=== PATIENT | male | born 1990 | race Two or more races ===

== ENCOUNTER 2019-11-19 17:15 | Inpatient (IN) | payer MEDICAID, OTHER ==
[~2019-11-19] VITALS: Ht 172.7 cm; Wt 97.6 kg
[2019-11-19] MEDS ORDERED: SODIUM CHLORIDE 0.9% 1,000 ML IVB ONE (17:48)
[2019-11-19 18:45] LABS: Basophils # (auto) 0 10 ^3/uL (0-0.2); Basophils % (auto) 0.4 % (0.0-2.0); Eosinophils # (auto) 0 10 ^3/uL (0-0.8); Hematocrit 45.9 % (41.0-53.0); Hemoglobin 15.5 g/dL (13.5-17.5); Lymphocytes # (auto) 0.9 10 ^3/uL (0.4-5.4); Lymphocytes % (auto) 15.6 % (10.0-50.0); Mean Corpuscular Hemoglobin 27.6 pg (28.0-32.0); Mean Corpuscular Hgb Conc. 33.7 g/dL (32.0-36.0); Monocytes # (auto) 0.5 10 ^3/uL (0-1.3); Monocytes % (auto) 9.1 % (0.0-12.0); Neutrophils # (auto) 4.1 10 ^3/uL (1.6-8.6); Neutrophils % (auto) 74.9 % (37.0-80.0); Platelet Count (auto) 140 10^3/uL (140-450); Red Blood Cells 5.61 10^6/uL (4.5-5.90); Red Cell Distribution Width 13.3 % (11.8-14.3); White Blood Cell 5.5 10^3/uL (4.4-10.8)
[2019-11-19 19:00] LABS: INR 1.07 (0.9-1.15); Partial Thromboplastin Time 34.4 sec (23.64-32.05)
[2019-11-19 19:06] LABS: Calcium 8.2 mg/dL (8.5-10.1); Magnesium 2.5 mg/dL (1.6-2.6)
[2019-11-19 19:15] LABS: Bilirubin, Total 0.6 mg/dL (0.2-1.0); Total Protein 8.1 g/dL (6.4-8.2)
[2019-11-19] MEDS ORDERED: ASCORBIC ACID 500 MG TAB PO ONE (20:00)
[2019-11-19] MEDS ORDERED: DOXYCYCLINE 100MG/250ML 250 ML IV ONE (20:00)
[2019-11-19] MEDS ORDERED: ZINC SULFATE 220mg CAP or TAB PO ONE (20:00)
[2019-11-19] MEDS ORDERED: ACETAMINOPHEN 325 MG TAB PO ONE (20:00)
[2019-11-19] MEDS ORDERED: DexAMETHasone 4 MG TAB PO ONE (20:00)
[2019-11-19] MEDS ORDERED: POTASSIUM CHL 20 Meq TABLET PO ONE (20:00)
[2019-11-19] MEDS ORDERED: SODIUM CHLORIDE 0.9% 1,000 ML IV SCH (20:53)
[2019-11-19] MEDS ORDERED: TEMAZEPAM 15 MG CAP PO PRN (21:00)
[2019-11-19] MEDS ORDERED: NITROGLYCERIN 0.4 MG SL TAB SL PRN (21:00)
[2019-11-19] MEDS ORDERED: MORPHINE SULF INJ 2 MG/ML SYRINGE 1ML IV PRN (21:00)
[2019-11-19] MEDS ORDERED: ONDANSETRON HCL 4 MG/2 ML VIAL IV PRN (21:00)
[2019-11-19] MEDS: DOXYCYCLINE 100MG/250ML 250 ML IV SCH (22:00)
[2019-11-19 22:57] LABS: Magnesium 2.4 mg/dL (1.6-2.6)
[2019-11-19 23:29] LABS: CRP High Sensitivity 1.57 mg/dL (< 0.3)
[2019-11-20] MEDS: FAMOTIDINE 20 MG TAB PO SCH ×3 (01:10→21:44)
[2019-11-20 08:13] LABS: Basophils # (auto) 0 10 ^3/uL (0-0.2); Basophils % (auto) 0.1 % (0.0-2.0); Eosinophils # (auto) 0 10 ^3/uL (0-0.8); Hematocrit 44.8 % (41.0-53.0); Hemoglobin 14.9 g/dL (13.5-17.5); Lymphocytes # (auto) 0.8 10 ^3/uL (0.4-5.4); Lymphocytes % (auto) 12.7 % (10.0-50.0); Mean Corpuscular Hemoglobin 27.7 pg (28.0-32.0); Mean Corpuscular Hgb Conc. 33.2 g/dL (32.0-36.0); Mean Corpuscular Volume 83.3 fL (80.0-100.0); Monocytes # (auto) 0.3 10 ^3/uL (0-1.3); Monocytes % (auto) 5.2 % (0.0-12.0); Neutrophils # (auto) 5.4 10 ^3/uL (1.6-8.6); Nucleated Red Blood Cells % 0.1 %; Platelet Count (auto) 157 10^3/uL (140-450); Red Blood Cells 5.37 10^6/uL (4.5-5.90); Red Cell Distribution Width 13.3 % (11.8-14.3); White Blood Cell 6.6 10^3/uL (4.4-10.8)
[2019-11-20 08:28] LABS: Albumin 3.6 g/dL (3.4-5.0); Potassium 3.4 mmol/L (3.5-5.1)
[2019-11-20 08:35] LABS: BUN/Creatinine Ratio 7.5; Bilirubin, Total 0.6 mg/dL (0.2-1.0); Total Protein 7.8 g/dL (6.4-8.2)
[2019-11-20] MEDS: DOXYCYCLINE 100MG/250ML 250 ML IV SCH ×2 (09:44→21:43)
[2019-11-20] MEDS: ZINC SULFATE 220mg CAP or TAB PO SCH (09:44)
[2019-11-20] MEDS: CHOLECALCIFEROL (VITD3) 2,000 UNIT CAP PO SCH (09:46)
[2019-11-20] MEDS ORDERED: ENOXAPARIN SOD 40 MG/0.4 ML SYRINGE SC SCH (10:00)
[2019-11-20] MEDS ORDERED: LORazepam 0.5 MG TAB PO PRN (10:00)
[2019-11-20] MEDS ORDERED: ASCORBIC ACID 1,000 MG TAB PO SCH (10:00)
[2019-11-20] MEDS: DexAMETHasone SOD PHOS 10MG/1ML VIAL INJ IV SCH (10:52)
[2019-11-20] MEDS ORDERED: cefTRIAXone 1GM/50ML D5W 50 ML IV ONE (11:00)
[2019-11-20] MEDS ORDERED: FUROSEMIDE 40 MG/4 ML VIAL IV ONE (11:00)
[2019-11-20] MEDS: ACETAMINOPHEN 325 MG TAB PO PRN (11:48)
[2019-11-20 12:52] LABS: Urine Bacteria NONE SEEN /hpf (None Seen); Urine Blood Negative /uL (Negative); Urine Budding Yeast OCCASIONAL /hpf (None Seen); Urine Mucus FEW (None Seen); Urine Specific Gravity 1.013 (1.001-1.035); Urine WBC 2 /hpf (0 - 3)
[2019-11-20] MEDS: ENOXAPARIN SOD 40 MG/0.4 ML SYRINGE SC SCH (21:44)
[2019-11-20 23:45] VITALS: BP 106/56
[2019-11-20] MEDS: ASCORBIC ACID 1,000 MG TAB PO SCH (23:59)
[2019-11-21] MEDS ORDERED: INFLUENZA QUAD 2019-2020 0.5ml SYRG IM ONE (01:15)
[2019-11-21] MEDS ORDERED: PNEUMOCOCCAL VACC POLYS 25 MCG/0.5 ML VIAL IM ONE (01:15)
[2019-11-21] MEDS: ACETAMINOPHEN 325 MG TAB PO PRN (03:59)
[2019-11-21 04:56] VITALS: BP 102/69
[2019-11-21 07:41] LABS: Basophils # (auto) 0 10 ^3/uL (0-0.2); Basophils % (auto) 0.1 % (0.0-2.0); Eosinophils # (auto) 0 10 ^3/uL (0-0.8); Hematocrit 42.2 % (41.0-53.0); Hemoglobin 14.1 g/dL (13.5-17.5); Mean Corpuscular Hemoglobin 27.6 pg (28.0-32.0); Mean Corpuscular Hgb Conc. 33.3 g/dL (32.0-36.0); Mean Corpuscular Volume 82.9 fL (80.0-100.0); Monocytes # (auto) 0.7 10 ^3/uL (0-1.3); Monocytes % (auto) 6.7 % (0.0-12.0); Neutrophils # (auto) 9.3 10 ^3/uL (1.6-8.6); Neutrophils % (auto) 84.2 % (37.0-80.0); Nucleated Red Blood Cells % 0.2 %; Platelet Count (auto) 180 10^3/uL (140-450); Red Blood Cells 5.09 10^6/uL (4.5-5.90); Red Cell Distribution Width 13.5 % (11.8-14.3); White Blood Cell 11.1 10^3/uL (4.4-10.8)
[2019-11-21 08:00] VITALS: BP 96/63
[2019-11-21 08:07] LABS: Albumin 3.2 g/dL (3.4-5.0); Calcium 8.5 mg/dL (8.5-10.1); Potassium 3.5 mmol/L (3.5-5.1)
[2019-11-21 08:11] LABS: BUN/Creatinine Ratio 15.5; Bilirubin, Total 0.5 mg/dL (0.2-1.0); Total Protein 7.3 g/dL (6.4-8.2)
[2019-11-21 08:21] LABS: CRP High Sensitivity 3.37 mg/dL (< 0.3)
[2019-11-21] MEDS ORDERED: cefTRIAXone 1GM/50ML D5W 50 ML IV SCH (09:00)
[2019-11-21] MEDS: THIAMINE 100mg/ml INJ (200mg/2ml VIAL) IV SCH (10:11)
[2019-11-21] MEDS: DexAMETHasone SOD PHOS 10MG/1ML VIAL INJ IV SCH (10:12)
[2019-11-21] MEDS: FUROSEMIDE 40 MG/4 ML VIAL IV SCH (10:15)
[2019-11-21] MEDS: DOXYCYCLINE 100MG/250ML 250 ML IV SCH (10:16)
[2019-11-21] MEDS: FAMOTIDINE 20 MG TAB PO SCH ×2 (10:17→22:38)
[2019-11-21] MEDS: ZINC SULFATE 220mg CAP or TAB PO SCH (10:17)
[2019-11-21] MEDS: CHOLECALCIFEROL (VITD3) 2,000 UNIT CAP PO SCH (10:18)
[2019-11-21] MEDS: ENOXAPARIN SOD 40 MG/0.4 ML SYRINGE SC SCH ×2 (10:18→22:39)
[2019-11-21] MEDS: ASCORBIC ACID 1,000 MG TAB PO SCH ×2 (10:18→22:00)
[2019-11-21 13:00] VITALS: BP 90/47
[2019-11-21] MEDS ORDERED: REMDESIVIR 200 MG in NS 210ml LOADING DOSE ADULT IV ONE (17:00)
[2019-11-21 17:09] VITALS: BP_SYST 105; BP_SYST 86; BP_DIAS 44; BP_DIAS 62
[2019-11-21] MEDS ORDERED: POTASSIUM CHL 20 Meq TABLET PO ONE (19:45)
[2019-11-21] MEDS ORDERED: DEXTROSE (50%) 50ML SYRG IV PRN (19:45)
[2019-11-21] MEDS: methylPREDNISolone SOD SUCC 40 MG/ML VL IV SCH (20:14)
[2019-11-21] MEDS: diphenhdrAMINE HCL 50 MG/1 ML VL IV SCH (20:14)
[2019-11-21] MEDS: ACETAMINOPHEN 650 mg PER 20 mL UD PO SCH (20:15)
[2019-11-21] MEDS: TOCILIZUMAB 400 MG in SODIUM CHL 0.9% 80 ML IV SCH (21:03)
[2019-11-21 22:00] VITALS: BP 134/73
[2019-11-21] MEDS: DOXYCYCLINE 100 MG TAB/CAP PO SCH (22:38)
[2019-11-21] MEDS: cefTRIAXone 1GM/50ML D5W 50 ML IV SCH (22:38)
[2019-11-21] MEDS: ACCU-CHEK COMFORT CURVE STRIP VI SCH (22:52)
[2019-11-21] MEDS: InsuLIN REG 1unit/0.01ml Soln (100units/ml) SC SCH (22:57)
[2019-11-22 05:00] VITALS: BP 110/60
[2019-11-22] MEDS: InsuLIN REG 1unit/0.01ml Soln (100units/ml) SC SCH ×4 (06:34→21:48)
[2019-11-22] MEDS: ACCU-CHEK COMFORT CURVE STRIP VI SCH ×4 (06:34→21:48)
[2019-11-22] MEDS: ACETAMINOPHEN 650 mg PER 20 mL UD PO SCH (08:00)
[2019-11-22] MEDS: methylPREDNISolone SOD SUCC 40 MG/ML VL IV SCH (08:00)
[2019-11-22] MEDS: diphenhdrAMINE HCL 50 MG/1 ML VL IV SCH (08:00)
[2019-11-22] MEDS: TOCILIZUMAB 400 MG in SODIUM CHL 0.9% 80 ML IV SCH (08:00)
[2019-11-22 09:00] VITALS: BP 117/66
[2019-11-22] MEDS: THIAMINE 100mg/ml INJ (200mg/2ml VIAL) IV SCH (10:00)
[2019-11-22] MEDS: ASCORBIC ACID 1,000 MG TAB PO SCH ×2 (10:00→21:18)
[2019-11-22] MEDS ORDERED: POTASSIUM CHL 20 Meq TABLET PO SCH (10:00)
[2019-11-22] MEDS: ZINC SULFATE 220mg CAP or TAB PO SCH (10:00)
[2019-11-22] MEDS: DexAMETHasone SOD PHOS 10MG/1ML VIAL INJ IV SCH (10:00)
[2019-11-22] MEDS: cefTRIAXone 1GM/50ML D5W 50 ML IV SCH ×2 (10:17→21:18)
[2019-11-22] MEDS: FUROSEMIDE 40 MG/4 ML VIAL IV SCH (10:19)
[2019-11-22] MEDS: CHOLECALCIFEROL (VITD3) 2,000 UNIT CAP PO SCH (10:21)
[2019-11-22] MEDS: DOXYCYCLINE 100 MG TAB/CAP PO SCH ×2 (10:21→21:18)
[2019-11-22] MEDS: FAMOTIDINE 20 MG TAB PO SCH ×2 (10:21→21:18)
[2019-11-22 13:00] VITALS: BP 139/64
[2019-11-22] MEDS ORDERED: LOPERAMIDE 2 mg/15ml ORAL soln PO ONE (13:00)
[2019-11-22] MEDS ORDERED: POTASSIUM EFFERVESENT TAB 25 MEQ PO ONE (16:30)
[2019-11-22] MEDS: REMDESIVIR 100mg in NS 230ml DAILYx4DAYS (NO VENT) IV SCH (16:45)
[2019-11-22 17:00] VITALS: BP 116/67
[2019-11-22 22:00] VITALS: BP 112/55
[2019-11-22] MEDS ORDERED: ENOXAPARIN SOD 60 MG/0.6 ML SYRINGE SC SCH (22:00)
[2019-11-23 05:00] VITALS: BP 126/73
[2019-11-23] MEDS: ACCU-CHEK COMFORT CURVE STRIP VI SCH ×4 (06:29→21:31)
[2019-11-23] MEDS: InsuLIN REG 1unit/0.01ml Soln (100units/ml) SC SCH ×4 (06:29→22:00)
[2019-11-23 07:40] LABS: Basophils # (auto) 0 10 ^3/uL (0-0.2); Eosinophils # (auto) 0 10 ^3/uL (0-0.8); Hematocrit 44.2 % (41.0-53.0); Hemoglobin 14.7 g/dL (13.5-17.5); Lymphocytes # (auto) 1.4 10 ^3/uL (0.4-5.4); Lymphocytes % (auto) 14.8 % (10.0-50.0); Mean Corpuscular Hemoglobin 27.8 pg (28.0-32.0); Mean Corpuscular Hgb Conc. 33.3 g/dL (32.0-36.0); Mean Corpuscular Volume 83.6 fL (80.0-100.0); Monocytes % (auto) 10.4 % (0.0-12.0); Neutrophils % (auto) 74.8 % (37.0-80.0); Platelet Count (auto) 284 10^3/uL (140-450); Red Blood Cells 5.29 10^6/uL (4.5-5.90); Red Cell Distribution Width 13.4 % (11.8-14.3); White Blood Cell 9.3 10^3/uL (4.4-10.8)
[2019-11-23 07:58] LABS: Potassium 3.5 mmol/L (3.5-5.1)
[2019-11-23 08:00] VITALS: BP 113/70
[2019-11-23 08:07] LABS: Albumin 3.1 g/dL (3.4-5.0); BUN/Creatinine Ratio 27.9; Bilirubin, Total 0.5 mg/dL (0.2-1.0); Calcium 8.5 mg/dL (8.5-10.1); Total Protein 7.6 g/dL (6.4-8.2)
[2019-11-23] MEDS ORDERED: MULTIPLE VITAMINS W/ MINERALS TAB PO ONE (08:45)
[2019-11-23] MEDS ORDERED: THIAMINE HCL 100 MG TAB PO ONE (09:00)
[2019-11-23] MEDS: cefTRIAXone 1GM/50ML D5W 50 ML IV SCH ×2 (09:44→21:31)
[2019-11-23] MEDS: POTASSIUM EFFERVESENT TAB 25 MEQ PO SCH (09:44)
[2019-11-23] MEDS: ZINC SULFATE 220mg CAP or TAB PO SCH (09:44)
[2019-11-23] MEDS: DOXYCYCLINE 100 MG TAB/CAP PO SCH ×2 (09:45→21:31)
[2019-11-23] MEDS: MULTIPLE VITAMINS W/ MINERALS TAB PO SCH (09:45)
[2019-11-23] MEDS: FAMOTIDINE 20 MG TAB PO SCH ×2 (09:45→21:31)
[2019-11-23] MEDS: ASCORBIC ACID 1,000 MG TAB PO SCH ×2 (09:46→21:31)
[2019-11-23] MEDS: CHOLECALCIFEROL (VITD3) 2,000 UNIT CAP PO SCH (09:46)
[2019-11-23] MEDS: ENOXAPARIN SOD 100 MG/1 ML SYRINGE SC SCH ×2 (09:48→21:31)
[2019-11-23] MEDS: DexAMETHasone SOD PHOS 10MG/1ML VIAL INJ IV SCH (09:50)
[2019-11-23] MEDS: FUROSEMIDE 40 MG/4 ML VIAL IV SCH (10:00)
[2019-11-23 12:00] VITALS: BP 112/64
[2019-11-23 17:00] VITALS: BP 108/58
[2019-11-23] MEDS: REMDESIVIR 100mg in NS 230ml DAILYx4DAYS (NO VENT) IV SCH (17:00)
[2019-11-23 22:00] VITALS: BP 99/56
[2019-11-24 05:57] VITALS: BP 121/68
[2019-11-24] MEDS: ACCU-CHEK COMFORT CURVE STRIP VI SCH ×4 (06:39→22:17)
[2019-11-24] MEDS: InsuLIN REG 1unit/0.01ml Soln (100units/ml) SC SCH ×4 (06:40→22:18)
[2019-11-24 07:35] LABS: Albumin 3.1 g/dL (3.4-5.0); Potassium 3.6 mmol/L (3.5-5.1)
[2019-11-24 07:39] LABS: BUN/Creatinine Ratio 29.3; Bilirubin, Total 0.6 mg/dL (0.2-1.0); Total Protein 7.1 g/dL (6.4-8.2)
[2019-11-24 08:00] VITALS: BP 108/60
[2019-11-24] MEDS: DexAMETHasone SOD PHOS 10MG/1ML VIAL INJ IV SCH (09:38)
[2019-11-24] MEDS: FUROSEMIDE 40 MG/4 ML VIAL IV SCH (09:41)
[2019-11-24] MEDS: cefTRIAXone 1GM/50ML D5W 50 ML IV SCH ×2 (09:41→22:16)
[2019-11-24] MEDS: THIAMINE HCL 100 MG TAB PO SCH (09:41)
[2019-11-24] MEDS: POTASSIUM EFFERVESENT TAB 25 MEQ PO SCH (09:42)
[2019-11-24] MEDS: ZINC SULFATE 220mg CAP or TAB PO SCH (09:42)
[2019-11-24] MEDS: ASCORBIC ACID 1,000 MG TAB PO SCH ×2 (09:44→22:16)
[2019-11-24] MEDS: ENOXAPARIN SOD 100 MG/1 ML SYRINGE SC SCH ×2 (09:44→22:17)
[2019-11-24] MEDS: CHOLECALCIFEROL (VITD3) 2,000 UNIT CAP PO SCH (09:44)
[2019-11-24] MEDS: DOXYCYCLINE 100 MG TAB/CAP PO SCH ×2 (09:44→22:16)
[2019-11-24] MEDS: MULTIPLE VITAMINS W/ MINERALS TAB PO SCH (09:45)
[2019-11-24] MEDS: FAMOTIDINE 20 MG TAB PO SCH ×2 (09:53→22:16)
[2019-11-24 12:00] VITALS: BP 100/54
[2019-11-24 17:00] VITALS: BP 105/60
[2019-11-24] MEDS: REMDESIVIR 100mg in NS 230ml DAILYx4DAYS (NO VENT) IV SCH (17:20)
[2019-11-24 22:27] VITALS: BP 107/54
[2019-11-25 04:47] VITALS: BP 89/48
[2019-11-25] MEDS: InsuLIN REG 1unit/0.01ml Soln (100units/ml) SC SCH ×4 (06:23→21:23)
[2019-11-25] MEDS: ACCU-CHEK COMFORT CURVE STRIP VI SCH ×4 (06:24→21:14)
[2019-11-25 09:00] VITALS: BP 97/60
[2019-11-25] MEDS: ASCORBIC ACID 1,000 MG TAB PO SCH ×3 (10:00→21:15)
[2019-11-25] MEDS: MULTIPLE VITAMINS W/ MINERALS TAB PO SCH ×2 (10:00→11:21)
[2019-11-25] MEDS: DexAMETHasone SOD PHOS 10MG/1ML VIAL INJ IV SCH (11:18)
[2019-11-25] MEDS: FUROSEMIDE 40 MG/4 ML VIAL IV SCH (11:19)
[2019-11-25] MEDS: cefTRIAXone 1GM/50ML D5W 50 ML IV SCH ×2 (11:19→21:13)
[2019-11-25] MEDS: THIAMINE HCL 100 MG TAB PO SCH (11:20)
[2019-11-25] MEDS: FAMOTIDINE 20 MG TAB PO SCH ×2 (11:21→21:14)
[2019-11-25] MEDS: ZINC SULFATE 220mg CAP or TAB PO SCH (11:21)
[2019-11-25] MEDS: DOXYCYCLINE 100 MG TAB/CAP PO SCH (11:21)
[2019-11-25] MEDS: POTASSIUM EFFERVESENT TAB 25 MEQ PO SCH (11:21)
[2019-11-25] MEDS: ENOXAPARIN SOD 100 MG/1 ML SYRINGE SC SCH ×2 (11:22→21:14)
[2019-11-25] MEDS: CHOLECALCIFEROL (VITD3) 2,000 UNIT CAP PO SCH (11:22)
[2019-11-25 11:55] LABS: Albumin 3.2 g/dL (3.4-5.0); Calcium 8.5 mg/dL (8.5-10.1); Potassium 3.8 mmol/L (3.5-5.1)
[2019-11-25 12:00] LABS: BUN/Creatinine Ratio 32.5; Bilirubin, Total 0.7 mg/dL (0.2-1.0); Total Protein 7.1 g/dL (6.4-8.2)
[2019-11-25 13:00] VITALS: BP 95/59
[2019-11-25 17:00] VITALS: BP 99/52
[2019-11-25] MEDS: REMDESIVIR 100mg in NS 230ml DAILYx4DAYS (NO VENT) IV SCH (17:35)
[2019-11-25 23:24] VITALS: BP 95/57
[2019-11-26 05:00] VITALS: BP 98/63
[2019-11-26] MEDS: ACCU-CHEK COMFORT CURVE STRIP VI SCH ×4 (05:58→21:07)
[2019-11-26] MEDS: InsuLIN REG 1unit/0.01ml Soln (100units/ml) SC SCH ×4 (05:58→21:08)
[2019-11-26 09:00] VITALS: BP 99/63
[2019-11-26] MEDS: ZINC SULFATE 220mg CAP or TAB PO SCH (10:00)
[2019-11-26] MEDS: CHOLECALCIFEROL (VITD3) 2,000 UNIT CAP PO SCH (10:00)
[2019-11-26] MEDS: THIAMINE HCL 100 MG TAB PO SCH (10:00)
[2019-11-26] MEDS: FUROSEMIDE 40 MG/4 ML VIAL IV SCH (10:00)
[2019-11-26] MEDS: MULTIPLE VITAMINS W/ MINERALS TAB PO SCH (10:00)
[2019-11-26] MEDS: ASCORBIC ACID 1,000 MG TAB PO SCH ×2 (10:00→21:14)
[2019-11-26] MEDS: FAMOTIDINE 20 MG TAB PO SCH ×2 (10:00→21:13)
[2019-11-26] MEDS: POTASSIUM EFFERVESENT TAB 25 MEQ PO SCH (10:00)
[2019-11-26] MEDS: DexAMETHasone SOD PHOS 10MG/1ML VIAL INJ IV SCH (10:35)
[2019-11-26] MEDS: ENOXAPARIN SOD 100 MG/1 ML SYRINGE SC SCH ×2 (10:36→21:12)
[2019-11-26] MEDS: cefTRIAXone 1GM/50ML D5W 50 ML IV SCH ×2 (10:36→21:13)
[2019-11-26 13:00] VITALS: BP 101/54
[2019-11-26 17:54] VITALS: BP 99/54
[2019-11-26 22:13] VITALS: BP 104/58
[2019-11-27 05:00] VITALS: BP 106/68
[2019-11-27] MEDS: ACCU-CHEK COMFORT CURVE STRIP VI SCH ×2 (05:59→11:29)
[2019-11-27] MEDS: InsuLIN REG 1unit/0.01ml Soln (100units/ml) SC SCH ×2 (05:59→11:29)
[2019-11-27 09:08] LABS: Basophils # (auto) 0 10 ^3/uL (0-0.2); Basophils % (auto) 0.2 % (0.0-2.0); Eosinophils # (auto) 0 10 ^3/uL (0-0.8); Eosinophils % (auto) 0.4 % (0.0-7.0); Hematocrit 46.9 % (41.0-53.0); Hemoglobin 15.3 g/dL (13.5-17.5); Lymphocytes % (auto) 19.6 % (10.0-50.0); Mean Corpuscular Hemoglobin 27.1 pg (28.0-32.0); Mean Corpuscular Hgb Conc. 32.5 g/dL (32.0-36.0); Mean Corpuscular Volume 83.3 fL (80.0-100.0); Monocytes # (auto) 0.4 10 ^3/uL (0-1.3); Neutrophils # (auto) 7.8 10 ^3/uL (1.6-8.6); Neutrophils % (auto) 75.8 % (37.0-80.0); Nucleated Red Blood Cells % 0.1 %; Platelet Count (auto) 313 10^3/uL (140-450); Red Blood Cells 5.63 10^6/uL (4.5-5.90); White Blood Cell 10.3 10^3/uL (4.4-10.8)
[2019-11-27 09:09] LABS: Albumin 3.2 g/dL (3.4-5.0); Calcium 8.4 mg/dL (8.5-10.1); Potassium 3.9 mmol/L (3.5-5.1)
[2019-11-27 09:12] LABS: BUN/Creatinine Ratio 26.7
[2019-11-27 09:15] LABS: Bilirubin, Total 0.6 mg/dL (0.2-1.0); Total Protein 6.9 g/dL (6.4-8.2)
[2019-11-27 09:16] VITALS: BP 110/67
[2019-11-27] MEDS: DexAMETHasone SOD PHOS 10MG/1ML VIAL INJ IV SCH (09:18)
[2019-11-27] MEDS: FUROSEMIDE 40 MG/4 ML VIAL IV SCH (09:19)
[2019-11-27] MEDS: ZINC SULFATE 220mg CAP or TAB PO SCH (09:20)
[2019-11-27] MEDS: THIAMINE HCL 100 MG TAB PO SCH (09:20)
[2019-11-27] MEDS: cefTRIAXone 1GM/50ML D5W 50 ML IV SCH (09:20)
[2019-11-27] MEDS: MULTIPLE VITAMINS W/ MINERALS TAB PO SCH (09:21)
[2019-11-27] MEDS: POTASSIUM EFFERVESENT TAB 25 MEQ PO SCH (09:21)
[2019-11-27] MEDS: ASCORBIC ACID 1,000 MG TAB PO SCH (09:21)
[2019-11-27] MEDS: FAMOTIDINE 20 MG TAB PO SCH (09:21)
[2019-11-27] MEDS: CHOLECALCIFEROL (VITD3) 2,000 UNIT CAP PO SCH (09:21)
[2019-11-27] MEDS: ENOXAPARIN SOD 100 MG/1 ML SYRINGE SC SCH (09:22)
[2019-11-27] MEDS ORDERED: MULTCAP45 PO (10:56)
[2019-11-27] MEDS ORDERED: CHOL1CAP47 PO (10:57)
[2019-11-27] MEDS ORDERED: DOXY-340 PO (10:57)
[2019-11-27] MEDS ORDERED: METF-370 PO (10:58)
[2019-11-27] MEDS ORDERED: FURO20TA3 PO (10:58)
[2019-11-27] MEDS ORDERED: POTA10TA51 PO (10:59)
[2019-11-27] MEDS ORDERED: DEX4T PO (11:05)
[2019-11-27 13:00] VITALS: BP 88/47
[2019-11-27 13:33] VITALS: BP 110/67
== END 2019-11-27 15:25 | disposition home or self-care (01) | DRG 720 ==
LOC: ER 17:15 → TELE 17:16 → TELE-EAST 11-20 23:37
PROVIDERS: ADMIT Nurse Practitioner; ATTEND Internal Medicine Nephrology
PROC: XW033E5 Introduction of Remdesivir Anti-infective into Peripheral Vein, Percutaneous Approach, New Technology Group 5 (ICD-10-PCS; principal; 2019-11-21)
PROC: XW033H5 Introduction of Tocilizumab into Peripheral Vein, Percutaneous Approach, New Technology Group 5 (ICD-10-PCS; 2019-11-21)
DX: A41.89 Other specified sepsis (principal); R65.20 Severe sepsis without septic shock; U07.1 COVID-19; J96.01 Acute respiratory failure with hypoxia; J12.89 Other viral pneumonia; E87.6 Hypokalemia; E66.9 Obesity, unspecified; E11.65 Type 2 diabetes mellitus with hyperglycemia; Z90.49 Acquired absence of other specified parts of digestive tract; Z82.49 Family history of ischemic heart disease and other diseases of the circulatory system; Z68.34 Body mass index [BMI] 34.0-34.9, adult
CPT/HCPCS: 36415; 36600; 71045; 80053; 81001; 82728; 82805; 82962; 83036; 83605; 83615; 83735; 83880; 84443; 85025; 85379; 85610; 85730; 86141; 86850; 86900; 86901; 87040; 93005; 93970; 94760; 96361; 96365; G0378; J0696; J1100; J1815; J2405; J3490